=== PATIENT | female | born 1965 | race Hispanic/Latino ===

== ENCOUNTER 2019-02-01 05:02 | Emergency (ER) | payer SELFPAY ==
[2019-02-01 06:08] LABS: Absolute Lymphocytes (CBC) 2.6 K/uL (0.7-4.9); Absolute Monocytes 0.8 K/uL (0.1-1.3); Absolute Neutrophil 7.6 K/uL (1.8-8.0); Basophils % 0.6 % (0-1.3); Eosinophils % 0.8 % (0-4.4); Hematocrit 43.6 % (36.0-45.0); Lymphocytes % 23.1 % (15.3-44.8); MPV 9.1 fL (7.6-11.3); Monocytes % 7.4 % (3.3-12.3); RBC Red Blood Cell Count 4.84 M/uL (3.86-4.86)
[2019-02-01 06:31] LABS: ALT/SGPT 22 U/L (12-78); AST/SGOT 21 U/L (15-37); Albumin 3.1 g/dL (3.4-5.0); Alkaline Phosphatase 115 U/L (45-117); BUN Blood Urea Nitrogen 9 mg/dL (7-18); Bicarbonate 24 mmol/L (21-32); Bilirubin Direct < 0.1 mg/dL (0-0.2); Bilirubin Total 0.4 mg/dL (0.2-1.0); Glucose Level 214 mg/dL (74-106); Lipase 137 U/L (73-393); Potassium 3.9 mmol/L (3.5-5.1); Sodium Level 137 mmol/L (136-145)
[2019-02-01] MEDS ORDERED: KETOROLAC 30 MG/ML INJ ONE (06:32)
--- NOTE | 2019-02-01 07:57 | RAD REPORT ---
EXAM DESCRIPTION: US - Transvaginal Study Probe - 02/01/2019 7:27 am CLINICAL HISTORY: Abdominal pain, dysmenorrhea COMPARISON: None. TECHNIQUE: Endovaginal sonography was performed. FINDINGS: Endometrium is approximately 15 mm in thickness. No discrete endometrial mass or polyp deyanira ntifiable. Overall examination is limited due to patient body habitus. Uterus is enlarged and lobulated measuring 15 x 10 x 8 cm. There is heterogeneity throughout the myom etrium. A hypoechoic 3.5 centimeter mass is present low near the cervix. There is an additional more central 3.3 centimeter hyperechoic mass. Both are believed to be fibroids. There may well be addition al fibroids that are poorly defined. Nonvisualization of either ovary. No adnexal mass identified. No blood or fluid in the cul de sac. IMPRESSION: Limited examination showing 15 millimeter thick endometrium with no focal abnormality id entifiable. Enlarged, lobulated multi fibroid uterus. Nonvisualization of the ovaries. No adnexal mass seen.
--- NOTE | 2019-02-01 08:03 | ER ---
Nurse's Notes [facility] Name: Carol Go Age: 53 yrs Sex: Female : 1965 Arrival Date: 02/01/2019 Time: 05:05 Bed 7 Private MD: Diagnosis: Abnormal uterine and vaginal bleeding, unspecified;Uterine Fibroids Presentation: 02/01 05:19 Presenting complaint: Patient states: she is having a very heavy menstrual cycle bb "flooding" with lower back pain since yesterday, pt states she has not had a menstrual cycle in months and does not currently have a PCP or travel nurse. Transition of care: patient was not received from another setting of care. Onset of symptoms was January 31, 2019. Risk Assessment: Do you want to hurt yourself or someone else? Patient reports no desire to harm self or others. Initial Sepsis Screen: Does the patient meet any 2 criteria? No. Patient's initial sepsis screen is negative. Does the patient have a suspected source of infection? No. Patient's initial sepsis screen is negative. Care prior to arrival: None. 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 - Social history:: Smoking status: Patient/guardian denies using tobacco. - Ebola Screening: : No symptoms or risks identified at this time. Screenin:30 Abuse screen: Denies threats or abuse. Denies injuries from another. Nutritional aa1 screening: No deficits noted. Tuberculosis screening: No symptoms or risk factors identified. Fall Risk None identified. Assessment: 05:30 General: Appears in no apparent distress. comfortable, obese, Behavior is calm, aa1 cooperative, appropriate for age. Pain: Complains of pain in back Quality of pain is described as aching, Pain began 1 day ago. Is continuous. Neuro: Level of Consciousness is awake, alert, obeys commands, Oriented to person, place, time, situation, Moves all extremities. Full function Gait is steady. Respiratory: Airway is patent Respiratory effort is even, unlabored, Respiratory pattern is regular, symmetrical. GI: No signs and/or symptoms were reported involving the gastrointestinal system. : Reports pain in lower back vaginal bleeding that is heavy flow. EENT: No signs and/or symptoms were reported regarding the EENT system. Derm: Skin is intact, is healthy with good turgor, Skin is pink, warm \\T\\ dry. Musculoskeletal: Circulation, motion, and sensation intact. Capillary refill < 3 seconds. 06:35 Reassessment: Patient appears in no apparent distress at this time. Patient and/or aa1 family updated on plan of care and expected duration. Pain level reassessed. Patient is alert, oriented x 3, equal unlabored respirations, skin warm/dry/pink. Awaiting u/s. 07:00 Reassessment: Patient is alert, oriented x 3, equal unlabored respirations, skin aa5 warm/dry/pink. Patient states feeling better. US at bedside. Pain: Pain currently is 0 out of 10 on a pain scale. 08:28 Reassessment: Patient is alert, oriented x 3, equal unlabored respirations, skin aa5 warm/dry/pink. Patient denies pain at this time. Vital Signs: 05:22 BP 136 / 72; Pulse 100; Resp 18 S; Temp 99.1(O); Pulse Ox 97% on R/A; Weight 103.42 kg bb (R); Height 4 ft. 11 in. (149.86 cm) (R); Pain 10/10; 06:36 BP 142 / 93; Pulse 89; Resp 20; Temp 98.9; Pulse Ox 95% on R/A; aa1 07:30 BP 143 / 78; Pulse 90; Resp 16 S; Temp 98.0(TE); Pulse Ox 98% on R/A; Pain 0/10; aa5 05:22 Body Mass Index 46.05 (103.42 kg, 149.86 cm) bb ED Course: 05:05 Patient arrived in ED. ds1 05:21 Triage completed. bb 05:22 Arm band placed on Patient placed in an exam room, on a stretcher, on pulse oximetry. bb Family accompanied patient. 05:30 Patient has correct armband on for positive identification. Bed in low position. Call aa1 light in reach. Pulse ox on. NIBP on. 05:45 Missed attempt(s): 22 gauge in right forearm. Bleeding controlled, band aid applied, aa1 catheter tip intact. 05:50 Initial lab(s) drawn, by me, sent to lab. Missed attempt(s): 22 gauge in right forearm. aa1 Bleeding controlled, band aid applied, catheter tip intact. 05:58 Valerie Mcintosh FNP-C [facility]. snw 05:58 Luke Walls MD is Attending Physician. snw 07:27 Transvaginal Study (Probe) In Process Unspecified. EDMS 07:30 Anayeli Kurtz, RN is Primary Nurse. aa5 08:01 Laura Hensley MD is Referral Physician. snw 08:28 No provider procedures requiring assistance completed. Patient did not have IV access aa5 during this emergency room visit. Administered Medications: 06:20 Drug: TORadol 30 mg Route: IM; Site: right deltoid; aa1 07:00 Follow up: Response: No adverse reaction; Pain is decreased aa5 Outcome: 08:02 Discharge ordered by . snw 08:28 Discharged to home ambulatory. aa5 08:28 Condition: stable 08:28 Discharge instructions given to patient, Instructed on discharge instructions, follow up and referral plans. medication usage, Demonstrated understanding of instructions, follow-up care, medications, Prescriptions given X 1. 08:31 Patient left the ED. aa5 Signatures: Dispatcher [employer] EDAL Jessica Orellana RN RN aa1 Valerie Mcintosh FNP-C ASSISTANT MANAGER TRAINEE-[employer] ds1 Ana Walker RN RN bb Anayeli Kurtz, RN RN aa5
--- NOTE | 2019-02-01 08:04 | EDPHYS ---
Physician Documentation [facility] Name: Carol Go Age: 53 yrs Sex: Female : 1965 Arrival Date: 02/01/2019 Time: 05:05 Bed 7 Private MD: ED Physician Luke Walls HPI: 02/01 06:21 This 53 yrs old Female presents to ER via Ambulatory with complaints of snw Vaginal Bleeding, Back Pain. 06:21 The patient presents with vaginal bleeding that is heavy. Onset: The symptoms/episode snw began/occurred suddenly. Associated signs and symptoms: Pertinent positives: back pain. Severity of symptoms: At their worst the symptoms were moderate, severe. known enlarged uterus. The patient has not recently seen a physician. 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 - Social history:: Smoking status: Patient/guardian denies using tobacco. - Ebola Screening: : No symptoms or risks identified at this time. ROS: 06:21 Constitutional: Negative for fever, chills, and weight loss, Eyes: Negative for injury, snw pain, redness, and discharge, ENT: Negative for injury, pain, and discharge, Neck: Negative for injury, pain, and swelling, Cardiovascular: Negative for chest pain, palpitations, and edema, Respiratory: Negative for shortness of breath, cough, wheezing, and pleuritic chest pain, : Negative for injury, discharge, and swelling, + severe vaginal bleeding MS/Extremity: Negative for injury and deformity, Skin: Negative for injury, rash, and discoloration, Neuro: Negative for headache, weakness, numbness, tingling, and seizure, Psych: Negative for depression, anxiety, suicide ideation, homicidal ideation, and hallucinations. 06:21 Abdomen/GI: Positive for abdominal pain, of the suprapubic area. Exam: 06:20 Constitutional: This is a well developed, well nourished patient who is awake, alert, snw and in no acute distress. Head/Face: Normocephalic, atraumatic. Eyes: Pupils equal round and reactive to light, extra-ocular motions intact. Lids and lashes normal. Conjunctiva and sclera are non-icteric and not injected. Cornea within normal limits. Periorbital areas with no swelling, redness, or edema. ENT: Nares patent. No nasal discharge, no septal abnormalities noted. Tympanic membranes are normal and external auditory canals are clear. Oropharynx with no redness, swelling, or masses, exudates, or evidence of obstruction, uvula midline. Mucous membranes moist. Neck: Trachea midline, no thyromegaly or masses palpated, and no cervical lymphadenopathy. Supple, full range of motion without nuchal rigidity, or vertebral point tenderness. No Meningismus. Chest/axilla: Normal chest wall appearance and motion. Nontender with no deformity. No lesions are appreciated. 06:20 Respiratory: Lungs have equal breath sounds bilaterally, clear to auscultation and percussion. No rales, rhonchi or wheezes noted. No increased work of breathing, no retractions or nasal flaring. Back: No spinal tenderness. No costovertebral tenderness. Full range of motion. Skin: Warm, dry with normal turgor. Normal color with no rashes, no lesions, and no evidence of cellulitis. MS/ Extremity: Pulses equal, no cyanosis. Neurovascular intact. Full, normal range of motion. Neuro: Awake and alert, GCS 15, oriented to person, place, time, and situation. Cranial nerves II-XII grossly intact. Motor strength 5/5 in all extremities. Sensory grossly intact. Cerebellar exam normal. Normal gait. Psych: Awake, alert, with orientation to person, place and time. Behavior, mood, and affect are within normal limits. 06:20 Cardiovascular: Rate: tachycardic, Rhythm: regular, Pulses: no pulse deficits are appreciated, Heart sounds: normal. 06:20 Abdomen/GI: Inspection: obese Bowel sounds: normal, Palpation: mild abdominal tenderness, in the right lower quadrant and left lower quadrant. Vital Signs: 05:22 BP 136 / 72; Pulse 100; Resp 18 S; Temp 99.1(O); Pulse Ox 97% on R/A; Weight 103.42 kg bb (R); Height 4 ft. 11 in. (149.86 cm) (R); Pain 10/10; 06:36 BP 142 / 93; Pulse 89; Resp 20; Temp 98.9; Pulse Ox 95% on R/A; aa1 07:30 BP 143 / 78; Pulse 90; Resp 16 S; Temp 98.0(TE); Pulse Ox 98% on R/A; Pain 0/10; aa5 05:22 Body Mass Index 46.05 (103.42 kg, 149.86 cm) bb MDM: 05:58 Patient medically screened. snw 08:02 Data reviewed: vital signs, nurses notes. Data interpreted: Pulse oximetry: on room air snw is 95 %. Interpretation: acceptable. Counseling: I had a detailed discussion with the patient and/or guardian regarding: the historical points, exam findings, and any diagnostic results supporting the discharge/admit diagnosis, the presence of at least one elevated blood pressure reading (>120/80) during this emergency department visit, lab results, radiology results, the need for outpatient follow up, to return to the emergency department if symptoms worsen or persist or if there are any questions or concerns that arise at home. Special discussion: Based on the history and exam findings, there is no indication for further emergent testing or inpatient evaluation. I discussed with the patient/guardian the need to see the OB Gyne specialist for further evaluation of the symptoms. 02/01 05:33 Order name: Basic Metabolic Panel; Complete Time: 06:47 tw4 02/01 05:33 Order name: CBC with Diff; Complete Time: 06:12 tw4 02/01 05:33 Order name: Creatinine for Radiology; Complete Time: 06:31 tw4 02/01 05:33 Order name: Hepatic Function; Complete Time: 06:47 tw4 02/01 05:33 Order name: Lipase; Complete Time: 06:47 tw4 02/01 05:59 Order name: US Transvaginal Study (Probe); Complete Time: 08:00 snw 02/01 05:33 Order name: Labs collected and sent; Complete Time: 06:13 tw4 Administered Medications: 06:20 Drug: TORadol 30 mg Route: IM; Site: right deltoid; aa1 07:00 Follow up: Response: No adverse reaction; Pain is decreased aa5 Disposition: 02/01/19 08:02 Discharged to Home. Impression: Abnormal uterine and vaginal bleeding, unspecified, Uterine Fibroids. - Condition is Stable. - Discharge Instructions: Abnormal Uterine Bleeding, Uterine Fibroids, Hysteroscopy, Endometrial Biopsy. - Prescriptions for Mobic 7.5 mg Oral Tablet - take 1 tablet by ORAL route once daily take with food; 20 tablet. - Medication Reconciliation Form, Thank You Letter, Antibiotic Education, Prescription Opioid Use form. - Follow up: Laura Hensley MD; When: 1 week; Reason: Recheck today's complaints, Continuance of care. Signatures: Dispatcher [employer] EDMS Jessica Orellana RN RN aa1 Valerie Mcintosh, TUCKING MACHINE OPERATOR-C TUCKING MACHINE OPERATOR-Csnw Ana Walker RN RN bb Anayeli Kurtz RN RN aa5 Luke Walls MD MD tw4 Corrections: (The following items were deleted from the chart) 08:14 05:33 IV Saline Lock ordered. tw4 aa5 08:31 08:02 02/01/2019 08:02 Discharged to Home. Impression: Abnormal uterine and vaginal aa5 bleeding, unspecified; Uterine Fibroids. Condition is Stable. Forms are Medication Reconciliation Form, Thank You Letter, Antibiotic Education, Prescription Opioid Use. Follow up: Laura Hensley; When: 1 week; Reason: Recheck today's complaints, Continuance of care. snw
== END 2019-02-01 08:31 | disposition home or self-care (01) ==
LOC: ER 05:02
DX: D25.9 Leiomyoma of uterus, unspecified (principal)
CPT/HCPCS: 36415; 76830; 80048; 80076; 83690; 85025; 96372; 99284